=== PATIENT | male | born 1980 | race Caucasian/White ===

== ENCOUNTER 2016-09-17 21:58 | Emergency (ER) | payer OTHER ==
--- NOTE | 2016-09-17 22:24 | ER Document Report ---
ED Medical Screen (RME) - General Chief Complaint: Fall Stated Complaint: FALL/NECK PAIN Time seen by provider: 22:20 Mode of Arrival: Ambulatory Information source: Patient Notes: 36-year-old male presents to ED for fall and neck pain around 9:30. States he fell a couple years ago and broke his neck and his head palms with his neck ever since. States he has a little bit of a headache does not think he hit his head. States he will bee walking in [employer] and his legs will give out on him. Pulse 110 in rme I have greeted and performed a rapid initial assessment of this patient. A comprehensive ED assessment and evaluation of the patient, analysis of test results and completion of medical decision making process will be conducted by an additional ED providers. TRAVEL OUTSIDE OF THE [place] IN LAST 30 DAYS: No - Related Data Allergies/Adverse Reactions: No Known Allergies Allergy (Verified 08/23/16 09:19) Past Medical History - Past Medical History Cardiac Medical History: Denies: Hx Atrial Fibrillation, Hx Congestive Heart Failure, Hx Coronary Artery Disease Pulmonary Medical History: Reports: Hx Asthma, Hx Pneumonia Neurological Medical History: Denies: Hx Cerebrovascular Accident, Hx Migraine, Hx Seizures Endocrine Medical History: Denies: Hx Diabetes Mellitus Type 1, Hx Diabetes Mellitus Type 2, Hx Graves' Disease Renal/ Medical History: Denies: Hx Benign Prostatic Hyperplasia, Hx End Stage Renal Disease, Hx Hemodialysis, Hx Hydrocele Malignancy Medical History: Denies Hx Bone Cancer, Denies Hx Brain Cancer, Denies Hx Colorectal Cancer, Denies Hx Liver Cancer GI Medical History: Denies: Hx Cirrhosis, Hx Crohn's Disease, Hx Diverticulitis , Hx Gastritis - Immunizations Hx Diphtheria, Pertussis, Tetanus Vaccination: Yes Physical Exam - Vital signs Vitals: Temp Pulse Resp BP Pulse Ox 98.1 F 131 H 19 136/77 H 100 09/17/16 22:04 09/17/16 22:04 09/17/16 22:04 09/17/16 22:04 09/17/16 22:04 Course - Vital Signs Vital signs: Temp Pulse Resp BP Pulse Ox 98.1 F 131 H 19 136/77 H 100 09/17/16 22:04 09/17/16 22:04 09/17/16 22:04 09/17/16 22:04 09/17/16 22:04
--- NOTE | 2016-09-18 02:18 | ER Document Report ---
ED General - General Chief Complaint: Head Injury Stated Complaint: FALL/NECK PAIN Mode of Arrival: Ambulatory Notes: Patient is a 36 year old male presents with complaint of neck pain. Patient says he is walking [place] he slipped and fell. Says he has pain in his neck. He says he may of his head but he denies a headache. He has no vomiting. He has no other complaints. He said initially had some numbness into his leg. He says he gets this numbness frequently being that he does have a previous history of neck fracture. The neck fracture did not require surgery. He never had any numbness or weakness into his arms. He denies any numbness into his leg currently. No other complaints at this time. TRAVEL OUTSIDE OF THE [place] IN LAST 30 DAYS: No - Related Data Allergies/Adverse Reactions: No Known Allergies Allergy (Verified 08/23/16 09:19) Past Medical History - General Information source: Patient - Social History Smoking Status: Current Every Day Smoker Frequency of alcohol use: Rare Drug Abuse: None Family History: Reviewed & Not Pertinent - Past Medical History Cardiac Medical History: Denies: Hx Atrial Fibrillation, Hx Congestive Heart Failure, Hx Coronary Artery Disease Pulmonary Medical History: Reports: Hx Asthma, Hx Pneumonia Neurological Medical History: Denies: Hx Cerebrovascular Accident, Hx Migraine, Hx Seizures Endocrine Medical History: Denies: Hx Diabetes Mellitus Type 1, Hx Diabetes Mellitus Type 2, Hx Graves' Disease Renal/ Medical History: Denies: Hx Benign Prostatic Hyperplasia, Hx End Stage Renal Disease, Hx Hemodialysis, Hx Hydrocele, Hx Peritoneal Dialysis Malignancy Medical History: Denies Hx Bone Cancer, Denies Hx Brain Cancer, Denies Hx Colorectal Cancer, Denies Hx Liver Cancer GI Medical History: Denies: Hx Cirrhosis, Hx Crohn's Disease, Hx Diverticulitis , Hx Gastritis - Immunizations Hx Diphtheria, Pertussis, Tetanus Vaccination: Yes Review of Systems - Review of Systems Notes: My Normal Review Basic REVIEW OF SYSTEMS: CONSTITUTIONAL : Denies fever, chills, or sweats. Denies recent illness. EENT: Neck pain CARDIOVASCULAR: Denies chest pain. GASTROINTESTINAL: Denies abdominal pain. Denies nausea, vomiting, or diarrhea. Denies constipation. Last BM: MUSCULOSKELETAL: Denies neck or back pain or joint pain or swelling. SKIN: Denies rash or skin lesions. NEUROLOGICAL: Denies altered mental status or loss of consciousness. Denies headache. Denies weakness or paralysis or loss of use of either side. Denies problems with gait or speech. Denies sensory or motor loss. ALL OTHER SYSTEMS REVIEWED AND NEGATIVE. Physical Exam - Vital signs Vitals: Temp Pulse Resp BP Pulse Ox 98.1 F 131 H 19 136/77 H 100 09/17/16 22:04 09/17/16 22:04 09/17/16 22:04 09/17/16 22:04 09/17/16 22:04 - Notes Notes: General Appearance: Well nourished, alert, cooperative, no acute distress, mild to moderate obvious discomfort. Well-appearing Vitals: reviewed, See vital signs table. Head: no swelling or tenderness to the head Eyes: PERRL, EOMI, Conjuctiva clear Mouth: No decreasd moisture Throat: No tonsillar inflammation, No airway obstruction, No lymphadenopathy Neck: Supple, no neck tenderness, No thyromegaly Lungs: No wheezing, No rales, No rhonci, No accessory muscle use, good air exchange bilaterally. Heart: Normal rate, Regular rythm, No murmur, no rub Abdomen: Normal BS, soft, No rigidity, No abdominal tenderness, No guarding, no rebound, no abdominal masses, no organomegaly Extremities: strength 5/5 in all extremities, good pulses in all extremities, no swelling or tenderness in the extremities, no edema. Skin: warm, dry, appropriate color, no rash Neuro: speech clear, oriented x 3, normal affect, responds appropriately to questions. Cranial nerves II through XII are intact. Patient is able move all extremities without difficulty. Good strength in both upper extremities. Course - Vital Signs Vital signs: Temp Pulse Resp BP Pulse Ox 98.5 F 110 H 16 126/73 H 92 09/18/16 04:24 09/18/16 04:24 09/18/16 04:24 09/18/16 04:24 09/18/16 04:24 - Transfer of Care Notes: 09/18/16 06:59 I did perform a CT scan of the patient's neck pain is negative. He looks well. He was tachycardic when he first arrived still a little bit tachycardic rate left. I think this is most related pain. He has abstained no pain to his abdomen or chest. I do not suspect any internal bleeding based on the mechanism of fall and based on exam. I feel he is safe to be discharged home. I encourage him to return to ER immediately if he has worsening pain, severe headache, or feels unwell. Discharge - Discharge Clinical Impression: Cervical strain Qualifiers: Encounter type: initial encounter Qualified Code(s): S16.1XXA - Strain of muscle, fascia and tendon at neck level, initial encounter Condition: Good Disposition: HOME, SELF-CARE Additional Instructions: Please return to ER if you have severe headache, vomiting, worsening pain, or feel unwell. Please return to ER if you have any numbness or weakness going into the arms or hands. Forms: Return to Work
[2016-09-18 04:33] VITALS: BP 126/73
== END 2016-09-18 04:33 | disposition home or self-care (01) ==
LOC: ER 21:58
DX: S16.1XXA Strain of muscle, fascia and tendon at neck level, initial encounter (principal); M54.2 Cervicalgia; W19.XXXA Unspecified fall, initial encounter; F17.210 Nicotine dependence, cigarettes, uncomplicated
CPT/HCPCS: 99284; 72050; 72125; L0120; L0172

== ENCOUNTER 2016-10-14 19:16 | Emergency (ER) | payer OTHER ==
[2016-10-14] MEDS ORDERED: ASPIRIN 81 MG TABLET, CHEWABLE PO ONE (19:22)
[2016-10-14 20:24] LABS: ABSOLUTE BASOPHILS # (AUTO) 0.1 10^3/uL (0.0-0.2); ABSOLUTE EOSINOPHILS # (AUTO) 0.4 10^3/uL (0.0-0.6); ABSOLUTE LYMPHOCYTES (AUTO) 3.2 10^3/uL (0.5-4.7); ABSOLUTE MONOCYTES (AUTO) 0.5 10^3/uL (0.1-1.4); BASOPHILS % (AUTO) 1.1 % (0-2); EOSINOPHILS % (AUTO) 5.4 % (0-6); HEMATOCRIT 44.9 % (37.9-51.0); HEMOGLOBIN 15.4 g/dL (13.5-17.0); HGB HCT DIFFERENCE 1.3; LYMPHOCYTES % (AUTO) 45.4 % (13-45); MEAN CORPUSCULAR HEMOGLOBIN 33.2 pg (27.0-33.4); MEAN CORPUSCULAR HGB CONC 34.2 g/dL (32.0-36.0); MEAN CORPUSCULAR VOLUME 97 fl (80-97); MONOCYTES % (AUTO) 6.5 % (3-13); RED BLOOD COUNT 4.63 10^6/uL (4.35-5.55); RED CELL DISTRIBUTION WIDTH 14.4 % (11.5-14.0); SEGMENTED NEUTROPHILS % (AUTO) 41.6 % (42-78); WHITE BLOOD COUNT 7.2 10^3/uL (4.0-10.5)
[2016-10-14 20:36] LABS: ALANINE AMINOTRANSFERASE 25 U/L (21-72); ALBUMIN 3.7 g/dL (3.5-5.0); ALKALINE PHOSPHATASE 80 U/L (38-126); ANION GAP 8 (5-19); ASPARTATE AMINO TRANSFERASE 21 U/L (17-59); BILIRUBIN,TOTAL 0.3 mg/dL (0.2-1.3); BLOOD UREA NITROGEN 7 mg/dL (7-20); CALCIUM 9.2 mg/dL (8.4-10.2); CARBON DIOXIDE 29 mmol/L (22-30); CHLORIDE 110 mmol/L (98-107); CREATINE KINASE 67 U/L (55-170); GLUCOSE 89 mg/dL (75-110); POTASSIUM 4.5 mmol/L (3.6-5.0); TOTAL PROTEIN 5.9 g/dL (6.3-8.2)
[2016-10-14 20:47] LABS: CREATINE KINASE MB 0.46 ng/mL (<4.55)
[2016-10-14 20:50] LABS: TROPONIN I < 0.012 ng/mL
[2016-10-14] MEDS ORDERED: LORAZEPAM INJ 2 MG/1 ML VIAL IV ONE (22:06)
--- NOTE | 2016-10-14 22:06 | ER Document Report ---
ED Cardiac - General Chief Complaint: Chest Pain Stated Complaint: POSSIBLE ANXIETY Mode of Arrival: Medic Information source: Patient Notes: This is a 36-year-old male who states that he has daily chest pain. He states that today at 1600 his pain became worse like "someone shot him in the chest". He called 911 at this time. He was at rest during chest pain onset. He denies radiation of the pain. He denies shortness of breath. He denies diaphoresis, nausea, vomiting. He states that he is under daily stress and that stress causes his chest pain. Currently has no chest pain. TRAVEL OUTSIDE OF THE [place] IN LAST 30 DAYS: No - Related Data Allergies/Adverse Reactions: No Known Allergies Allergy (Verified 08/23/16 09:19) Past Medical History - Social History Smoking Status: Current Every Day Smoker Frequency of alcohol use: Occasional Family History: CAD - Past Medical History Cardiac Medical History: Denies: Hx Atrial Fibrillation, Hx Congestive Heart Failure, Hx Coronary Artery Disease Pulmonary Medical History: Reports: Hx Asthma, Hx Pneumonia Neurological Medical History: Denies: Hx Cerebrovascular Accident, Hx Migraine, Hx Seizures Endocrine Medical History: Denies: Hx Diabetes Mellitus Type 1, Hx Diabetes Mellitus Type 2, Hx Graves' Disease Renal/ Medical History: Denies: Hx Benign Prostatic Hyperplasia, Hx End Stage Renal Disease, Hx Hemodialysis, Hx Hydrocele, Hx Peritoneal Dialysis Malignancy Medical History: Denies Hx Bone Cancer, Denies Hx Brain Cancer, Denies Hx Colorectal Cancer, Denies Hx Liver Cancer GI Medical History: Denies: Hx Cirrhosis, Hx Crohn's Disease, Hx Diverticulitis , Hx Gastritis - Immunizations Hx Diphtheria, Pertussis, Tetanus Vaccination: Yes Review of Systems - Review of Systems Notes: REVIEW OF SYSTEMS: Review of systems is limited secondary to patient anger and not cooperating fully with questions. CONSTITUTIONAL : Denies fever EENT: No reported complaints CARDIOVASCULAR: As per history of present illness RESPIRATORY: No shortness of breath GASTROINTESTINAL: Denies abdominal pain GENITOURINARY: No reported complaints MUSCULOSKELETAL: Denies complaints SKIN: Denies rash or skin lesions. PSYCHIATRIC: Patient states "I am here for stress I'm always stressed and that' s what causes my chest pain!!" Denies suicidal or homicidal ideation. ALL OTHER SYSTEMS REVIEWED AND NEGATIVE. Physical Exam - Vital signs Vitals: Pulse Ox 97 10/14/16 19:41 - Notes Notes: PHYSICAL EXAMINATION: GENERAL: Well-appearing, well-nourished and in no acute distress. HEAD: Atraumatic, normocephalic. EYES: Pupils equal round and reactive to light, extraocular movements intact, sclera anicteric, conjunctiva are normal. ENT: nares patent, oropharynx clear without exudates. Moist mucous membranes. NECK: Normal range of motion, supple without lymphadenopathy LUNGS: Breath sounds clear to auscultation bilaterally and equal. No wheezes rales or rhonchi. HEART: Regular rate and rhythm without murmurs. No chest wall TTP ABDOMEN: Soft, nontender, normoactive bowel sounds. No guarding, no rebound. No masses appreciated. EXTREMITIES: Normal range of motion, no pitting or edema. No cyanosis. NEUROLOGICAL: No gross focal motor or sensory deficits noted PSYCH: Patient appears angry but not combative. He appears annoyed at every question that he is asked. No audiovisual hallucinations, no SI/HI SKIN: Warm, Dry, normal turgor, no rashes or lesions noted. Course - Re-evaluation Re-evalutation: 10/14/16 22:04 Initial evaluation of the patient is difficult secondary to his angry affect. He is not very cooperative with questioning and is very angry, using curse words and when I asked to examine him, he says just do what you need to do! He refuses aspirin stating that he cannot take any pills because they make him high. 10/15/16 00:42 Patient reevaluated. He is sleeping comfortably in the room. He does awaken easily to voice and answers questions appropriately. He states that he feels fine right now. We discussed his high alcohol level and he admits to drinking prior to arrival. At this point he would like to go home and sleep in his own bed. He states that he will call his mom to come drive him. At this point I do not see any clinical evidence of cardiac ischemia or acute coronary syndrome. His EKG shows no ischemia and his troponin is negative 2. He is encouraged to limit his alcohol use as well as to stop smoking. Strict return precautions discussed. - Vital Signs Vital signs: Temp Pulse Resp BP Pulse Ox 98.6 F 58 L 16 109/60 96 10/15/16 00:44 10/15/16 00:44 10/15/16 00:44 10/15/16 00:44 10/15/16 00:44 - Laboratory Result Diagrams: 10/14/16 20:09 10/14/16 20:09 Laboratory results interpreted by me: 10/14/16 10/14/16 20:09 20:09 RDW 14.4 H Seg Neutrophils % 41.6 L Lymphocytes % 45.4 H Sodium 147.0 H Chloride 110 H Total Protein 5.9 L - Diagnostic Test Radiology reviewed: Reports reviewed - Chest x-ray negative - EKG Interpretation by Me Additional EKG results interpreted by me: 10/14/16 23:26 EKG at 1921 demonstrates normal sinus rhythm with a rate of 98. There is a normal axis. There are no ST elevation or depressions. Discharge - Discharge Clinical Impression: Anxiety Alcohol intoxication Qualifiers: Complication of substance-induced condition: uncomplicated Qualified Code(s): F10.120 - Alcohol abuse with intoxication, uncomplicated Chest pain Qualifiers: Chest pain type: unspecified Qualified Code(s): R07.9 - Chest pain, unspecified Condition: Stable Disposition: HOME, SELF-CARE Additional Instructions: ACUTE ALCOHOL INTOXICATION and ALCOHOL ABUSE: Your evaluation revealed very high levels of alcohol. You can from drinking a large amount of alcohol rapidly! Further, there's the risk of falls , traffic accidents, and fights. A high portion (about 50 percent) of the serious injuries seen in hospital emergency rooms are caused by alcohol. Alcohol overdosage is usually due to an underlying emotional or psychiatric problem. You may benefit from counselling. If "binge" drinking is an ongoing problem for you, or if you drink ANY AMOUNT of alcohol EVERY day, you most likely have a tendency to alcoholism. You should avoid alcohol totally. We can refer you for treatment. Persons with alcohol problems are often also prone to other addictions -- you should discuss any use of medications or drugs with the doctor. You should be watched at home for the next several hours by someone who has not been drinking. Get extra fluids for the next 24 hours. Call the doctor if there is repeated vomiting, increasing headache, decreasing level of alertness, or any other worsening. Chest Pain of Unclear Cause The exact cause of your chest pain isn't clear. Fortunately, there is no evidence of a dangerous medical condition. Further testing may be required to find the source of the pain. Most often, we find that this pain is coming from the chest wall -- the muscles or rib joints in the chest. But chest pain can come from the lung and lung lining, the esophagus, the heart valves or heart lining, and even the stomach or gallbladder. Rest. Eat lightly until the pain is gone. We may prescribe medicine for pain and inflammation. You should call the physician immediately if the pain radiates to the shoulder, jaw or arms; if you start to run a fever or develop a cough; or if you develop shortness of breath, or other new or alarming symptoms. SMOKING: If you smoke, you should stop smoking. The tar and chemicals in cigarette smoke are harmful. Smoking has been shown to cause: emphysema chronic bronchitis lung cancer mouth and throat cancer stomach and pancreas cancer premature aging defects In addition, smoking increases ear and lung infections in children of smokers. FOLLOW-UP CARE: If you have been referred to a physician for follow-up care, call the physician s office for an appointment as you were instructed or within the next two days. If you experience worsening or a significant change in your symptoms, notify the physician immediately or return to the Emergency Department at any time for re-evaluation. Forms: Smoking Cessation Education
[2016-10-15] MEDS ORDERED: NORMAL SALINE 1000 ML 1,000 ML IV ONE ×2 (00:01→00:24)
[2016-10-15 00:17] LABS: URINE BARBITURATES SCREEN NEGATIVE; URINE METHADONE SCREEN NEGATIVE; URINE OPIATES LOW NEGATIVE; URINE PHENCYCLIDINE SCREEN NEGATIVE
[2016-10-15 02:29] VITALS: BP 92/56
--- NOTE | 2016-10-15 22:01 | EKG REPORT ---
SEVERITY:- BORDERLINE ECG - SINUS RHYTHM PROBABLE LEFT ATRIAL ABNORMALITY BORDERLINE PROLONGED QT INTERVAL : Confirmed by: Bozena King MD 15-Oct-2016 22:00:25
== END 2016-10-15 02:29 | disposition home or self-care (01) ==
LOC: ER 19:16
DX: F41.9 Anxiety disorder, unspecified (principal); F10.120 Alcohol abuse with intoxication, uncomplicated; R07.9 Chest pain, unspecified; F17.200 Nicotine dependence, unspecified, uncomplicated
CPT/HCPCS: 93005; 99284; 96374; 36415; 82553; 80307 ×2; 82550; 85025; 80053; 84484; 71010; 93010; J2060

== ENCOUNTER 2016-11-06 13:09 | Emergency (ER) | payer OTHER ==
--- NOTE | 2016-11-06 15:27 | ER Document Report ---
ED Extremity Problem, Lower - General Mode of Arrival: Ambulatory Information source: Patient TRAVEL OUTSIDE OF THE [place] IN LAST 30 DAYS: No - HPI Patient complains to provider of: Pain - left lateral foot Location: Foot - left lateral foot Occurred: Other - 1 week ago Context: Other - see above Associated symptoms: Other - see above - General Chief Complaint: Foot Pain Stated Complaint: LEFT FOOT SWOLLEN Notes: 36 year old male presents to the ED complaining of left lateral foot pain that started 1 week ago. Patient reports that it feels like his foot is "tearing apart." Patient denies injury to his foot. 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 Patient denies history of diabetes. (JOESPH CEJA) - Related Data Allergies/Adverse Reactions: No Known Allergies Allergy (Verified 11/06/16 13:59) Past Medical History - General Information source: Patient - Social History Smoking Status: Current Every Day Smoker Chew tobacco use (# tins/day): No Frequency of alcohol use: None Drug Abuse: None Family History: CAD Patient has suicidal ideation: No Patient has homicidal ideation: No - Past Medical History Cardiac Medical History: Denies: Hx Atrial Fibrillation, Hx Congestive Heart Failure, Hx Coronary Artery Disease Pulmonary Medical History: Reports: Hx Asthma, Hx Pneumonia - Immunizations Hx Diphtheria, Pertussis, Tetanus Vaccination: Yes Review of Systems - Review of Systems Constitutional: No symptoms reported EENT: No symptoms reported Cardiovascular: No symptoms reported Respiratory: No symptoms reported Gastrointestinal: No symptoms reported Genitourinary: No symptoms reported Male Genitourinary: No symptoms reported Musculoskeletal: See HPI, Other - left lateral foot pain Skin: No symptoms reported Hematologic/Lymphatic: No symptoms reported Neurological/Psychological: No symptoms reported -: Yes All other systems reviewed and negative Physical Exam - Vital signs Interpretation: Normal - General General appearance: Alert In distress: None - HEENT Head: Normocephalic, Atraumatic Eyes: Normal Extraocular movements intact: Yes Pupils: PERRL - Respiratory Respiratory status: No respiratory distress Breath sounds: Normal - Cardiovascular Rhythm: Regular Heart sounds: Normal auscultation - Abdominal Inspection: Normal Distension: No distension Tenderness: Nontender - Back Back: Normal - Extremities General upper extremity: Normal inspection, Normal ROM General lower extremity: Normal ROM. No: Normal inspection - see ankle exam below Ankle: Nontender - upon palpation, Other - Mild swelling to the lateral aspect the left foot. No deformity with mild resolving ecchymosis.. No: Limited ROM - Neurological Neuro grossly intact: Yes Cognition: Normal Orientation: AAOx4 Reena Coma Scale Eye Opening: Spontaneous Reena Coma Scale Verbal: Oriented [place] Coma Scale Motor: Obeys Commands Reena Coma Scale Total: 15 Speech: Normal - Psychological Associated symptoms: Normal affect, Normal mood - Skin Skin Temperature: Warm Skin Moisture: Dry Skin Color: Normal Discharge - Discharge Clinical Impression: Sprain of foot Condition: Stable Disposition: HOME, SELF-CARE Instructions: Ice Packs ([facility]), Sprain ([facility]) Additional Instructions: SPRAIN: Your injury is a sprain. A sprain results from stretching or tearing of the ligaments, usually from a twisting injury. The ligaments will require time and protection in order to heal properly. Many sprains are quite disabling and should be taken seriously. The usual initial treatment of sprains is cold packs, elevation, and rest of the injured area. Your physician has assessed the seriousness of your ligament injury, and has outlined a treatment plan. Understand that this treatment may change, depending on how you progress. If a re-examination was recommended, it is important that you follow up as instructed. Call the doctor any time if there is severe pain, numbness, or loss of function in the injured area. BRUNO WRAP: A compression dressing (bruno wrap) has been placed. This helps hold the area still. It limits swelling and internal bleeding. The wrap should be comfortably snug -- not tight. You should feel a sense of pressure, but not severe pain under the wrap. Unless the physician tells you otherwise, you can adjust the wrap for comfort. If the wrap causes symptoms suggesting it's too tight -- uncomfortable pressure, swelling or discoloration beyond the wrap, numbness, or severe pain - - you must loosen the wrap. If these symptoms don't resolve promptly, return for re-evaluation. SPLINT PRECAUTIONS: A splint has been placed. This will protect the area while healing begins. Your problem does NOT normally require a cast. It MUST, however, be held still! Keep the splint on ALL THE TIME until instructed to remove it by the doctor. As you begin to use the area, be careful. You shouldn't do anything which causes discomfort -- you may disturb the injury even with the splint in place. After the initial period of rest and elevation, if splint does not prevent pain when you move, come back. You may require placement of a different splint , or a cast. If there is unexpected severe pain, or numbness, discoloration, or swelling beyond the splint, you should return at once. If you feel that the splint has broken or become loose, come back. ICE & ELEVATION: Apply ice packs frequently against the painful area. Many different schedules are recommended, such as "20 minutes on, 20 minutes off" or "one hour ice, two hours rest." If you need to work, you may need to go longer between ice treatments. You should plan to have the area ice packed AT LEAST one- fourth of the time. The ice should be applied over the wrap, tape, or splint, or over a layer of cloth -- not directly against the skin. Some ice bags have a built-in cloth and can be put directly on the skin. Your injured part should be elevated as much as possible over the next 48 hours. Try to keep the injury above the level of the heart. Avoid use of the injured area. Elevation and rest will decrease the swelling. USE OF [id number] IBUPROFEN: Ibuprofen (Advil, Nuprin, Medipren, Motrin IB) is a medication for fever and pain control. In addition, it has anti- inflammatory effects which may be beneficial, especially in the treatment of injuries. It's best to take ibuprofen with food. Persons with ulcer disease or allergy to aspirin should notify their physician of this before taking ibuprofen. Ibuprofen can be given every four to six hours, for a total of four doses daily. Age Pain or fever dose Antiinflammatory dose 6-8 yr 200 mg (1 tab) 200 mg (1 tab) 9-11 yr 200 mg (1 tab) 200-400 mg (1-2 tab) 11-14 yr 200-400 mg (1-2 tab) 400 mg (2 tab) 15-adult 400 mg (2 tab) 600 mg (3 tab) FOLLOW-UP CARE: If you have been referred to a physician for follow-up care, call the physician s office for an appointment as you were instructed or within the next two days. If you experience worsening or a significant change in your symptoms, notify the physician immediately or return to the Emergency Department at any time for re-evaluation. Prescriptions: Naproxen [Naprosyn 375 Mg Tablet] 375 mg PO DAILY #12 tablet Scribe Documentation - Scribe Written by Lillian:: Lillian Horton, 11/06/2016 [id number] acting as scribe for :: Riley
[2016-11-06 17:03] VITALS: BP 118/69
== END 2016-11-06 17:01 | disposition home or self-care (01) ==
LOC: ER 13:09
DX: S93.609A Unspecified sprain of unspecified foot, initial encounter (principal); X58.XXXA Exposure to other specified factors, initial encounter; M79.672 Pain in left foot; M79.89 Other specified soft tissue disorders; F17.200 Nicotine dependence, unspecified, uncomplicated; J45.909 Unspecified asthma, uncomplicated
CPT/HCPCS: 99283

== ENCOUNTER → 2016-12-31 | Outpatient (CLI) | payer OTHER ==
[2016-12-31 10:42] LABS: ABSOLUTE BASOPHILS # (AUTO) 0.1 10^3/uL (0.0-0.2); ABSOLUTE EOSINOPHILS # (AUTO) 0.6 10^3/uL (0.0-0.6); ABSOLUTE LYMPHOCYTES (AUTO) 1.7 10^3/uL (0.5-4.7); ABSOLUTE MONOCYTES (AUTO) 0.9 10^3/uL (0.1-1.4); ABSOLUTE NEUT (AUTO) 6.2 10^3/uL (1.7-8.2); BASOPHILS % (AUTO) 0.8 % (0-2); EOSINOPHILS % (AUTO) 6.6 % (0-6); HEMATOCRIT 44.8 % (37.9-51.0); HEMOGLOBIN 15.4 g/dL (13.5-17.0); HGB HCT DIFFERENCE 1.4; LYMPHOCYTES % (AUTO) 17.7 % (13-45); MEAN CORPUSCULAR HGB CONC 34.3 g/dL (32.0-36.0); MEAN CORPUSCULAR VOLUME 96 fl (80-97); MONOCYTES % (AUTO) 9.4 % (3-13); RED BLOOD COUNT 4.67 10^6/uL (4.35-5.55); RED CELL DISTRIBUTION WIDTH 13.8 % (11.5-14.0); SEGMENTED NEUTROPHILS % (AUTO) 65.5 % (42-78); WHITE BLOOD COUNT 9.5 10^3/uL (4.0-10.5)
== END ==
LOC: RAD 09:38
DX: M54.2 Cervicalgia (principal); R20.9 Unspecified disturbances of skin sensation
CPT/HCPCS: 36415; 72141; 82607; 85025

== ENCOUNTER 2017-05-27 00:14 | Emergency (ER) | payer OTHER ==
--- NOTE | 2017-05-27 01:52 | ER Document Report ---
HPI - HPI Patient complains to provider of: right knee pain Onset: Just prior to arrival Onset/Duration: Sudden Quality of pain: Throbbing Pain Level: 4 Context: 36-year-old male was trying to jump a electrical fence got tangled in the wires and was hanging by the 12 V since being shocked in his left leg and twisting his right knee. He got off the fence and walked went home and took a nap when he woke up it was swollen with increased pain to the right knee. Tetanus not current. No chest pain or sob at the time, no palpiations. No skin roy, only abrasions from the wire - REPRODUCTIVE Reproductive: DENIES: : - DERM Skin Color: Normal Past Medical History - General Information source: Patient - Social History Smoking Status: Current Every Day Smoker Frequency of alcohol use: Heavy Drug Abuse: None Lives with: Spouse/Significant other Family History: CAD Patient has suicidal ideation: No Patient has homicidal ideation: No Pulmonary Medical History: Reports: Hx Asthma, Hx Pneumonia Surgical Hx: Negative - Immunizations Hx Diphtheria, Pertussis, Tetanus Vaccination: Yes Vertical Provider Document - CONSTITUTIONAL Agree With Documented VS: Yes Exam Limitations: No Limitations General Appearance: No Apparent Distress - INFECTION CONTROL TRAVEL OUTSIDE OF THE [place] IN LAST 30 DAYS: No - HEENT HEENT: Normocephalic - NECK Neck: Supple - RESPIRATORY Respiratory: Breath Sounds Normal, No Respiratory Distress O2 Sat by Pulse Oximetry: 97 - CARDIOVASCULAR Cardiovascular: Regular Rate, Regular Rhythm - MUSCULOSKELETAL/EXTREMETIES Musculoskeletal/Extremeties: Tender - effusion but not red or hot right knee, increased pain with flexion - NEURO Level of Consciousness: Awake, Alert - DERM Notes: abrasions anterior bilateral lower legs, some peripheral lower leg edema that he has had for a while , he states it is better than it has been, 2+ DP's Course - Vital Signs Vital signs: Temp Pulse Resp BP Pulse Ox 99.6 F 100 16 123/79 97 05/27/17 00:49 05/27/17 00:49 05/27/17 00:49 05/27/17 00:49 05/27/17 00:49 Procedures - Immobilization Right Knee Time completed: 03:15 Pre-Proc Neuro Vasc Exam: Normal Immobilizer type: Knee immobilizer Performed by: SUZI Post-Proc Neuro Vasc Exam: Normal Alignment checked and good: Yes Discharge - Discharge Clinical Impression: abrasions Right knee sprain Qualifiers: Encounter type: initial encounter Involved ligament of knee: unspecified ligament Qualified Code(s): S83.91XA - Sprain of unspecified site of right knee , initial encounter Knee effusion Qualifiers: Laterality: right Qualified Code(s): M25.461 - Effusion, right knee Electric shock Qualifiers: Encounter type: initial encounter Qualified Code(s): T75.4XXA - Electrocution, initial encounter Condition: Good Disposition: HOME, SELF-CARE Instructions: Anti-Inflammatory Medication ([facility]), Use of Crutches ([facility]), Ice & Elevation ([facility]), Suspected Internal Knee Injury ([facility]), Knee Immobilizing Splint ([facility]), Sprained Knee ([facility]) Additional Instructions: knee immobilizer splint crutches call and see the Prescriptions: Ibuprofen [Motrin 800 mg Tablet] 800 mg PO Q8HP PRN #30 tablet PRN Reason: Referrals: ANA WILHELM DO [ACTIVE STAFF] - Follow up tomorrow (call for appointment this week)
[2017-05-27] MEDS ORDERED: IBUPROFEN 800 MG TABLET PO ONE (02:11)
[2017-05-27] MEDS ORDERED: DIPH/PERTUSS(ACELL)/TETANUS VAC/PF 0.5 ML SYR (>=10YO) IM ONE (02:14)
--- NOTE | 2017-05-27 02:59 | RADIOLOGY REPORT (SQ) ---
EXAM DESCRIPTION: KNEE RIGHT 4 VIEWS CLINICAL HISTORY: 36 years, Male, injury COMPARISON: None. NUMBER OF VIEWS: 4 TECHNIQUE: Low dose radiographic technique. LIMITATIONS: None. FINDINGS: Moderate size suprapatellar joint effusion without layering fat. No fractures or dislocations. Medial and lateral joint compartments appear well preserved. No osteochondritis dissecans or evidence of calcified loose joint body. The patella appears intact. No lytic or blastic bone lesions. IMPRESSION: Moderate-sized right knee joint effusion without evidence of fracture, dislocation or osteochondritis dissecans. 2011 [employer]- All Rights Reserved
[2017-05-27 03:22] VITALS: BP 128/66
== END 2017-05-27 03:18 | disposition home or self-care (01) ==
LOC: ER 00:14
DX: S83.91XA Sprain of unspecified site of right knee, initial encounter (principal); M25.561 Pain in right knee; M25.461 Effusion, right knee; X50.1XXA Overexertion from prolonged static or awkward postures, initial encounter; Y93.39 Activity, other involving climbing, rappelling and jumping off; Y99.0 Civilian activity done for income or pay; T75.4XXA Electrocution, initial encounter; W86.8XXA Exposure to other electric current, initial encounter; S80.812A Abrasion, left lower leg, initial encounter; W23.0XXA Caught, crushed, jammed, or pinched between moving objects, initial encounter; F17.200 Nicotine dependence, unspecified, uncomplicated; J45.909 Unspecified asthma, uncomplicated
CPT/HCPCS: 99283; 90471; 73564; 90715; L1830

== ENCOUNTER → 2019-10-23 | Outpatient (CLI) | payer OTHER ==
[2019-10-23 11:12] LABS: ABSOLUTE BASOPHILS # (AUTO) 0.1 10^3/uL (0.0-0.2); ABSOLUTE EOSINOPHILS # (AUTO) 0.3 10^3/uL (0.0-0.6); ABSOLUTE LYMPHOCYTES (AUTO) 2.5 10^3/uL (0.5-4.7); ABSOLUTE MONOCYTES (AUTO) 0.9 10^3/uL (0.1-1.4); ABSOLUTE NEUT (AUTO) 8.8 10^3/uL (1.7-8.2); BASOPHILS % (AUTO) 1.2 % (0-2); EOSINOPHILS % (AUTO) 2.7 % (0-6); HEMATOCRIT 48.5 % (37.9-51.0); HEMOGLOBIN 16.6 g/dL (13.5-17.0); LYMPHOCYTES % (AUTO) 19.3 % (13-45); MEAN CORPUSCULAR HEMOGLOBIN 31.9 pg (27.0-33.4); MEAN CORPUSCULAR HGB CONC 34.2 g/dL (32.0-36.0); MEAN CORPUSCULAR VOLUME 93 fl (80-97); MONOCYTES % (AUTO) 7.1 % (3-13); PLATELET COUNT 279 10^3/uL (150-450); RED CELL DISTRIBUTION WIDTH 13.4 % (11.5-14.0); SEGMENTED NEUTROPHILS % (AUTO) 69.7 % (42-78); TOTAL CELLS COUNTED % (AUTO) 100 %; WHITE BLOOD COUNT 12.7 10^3/uL (4.0-10.5)
--- NOTE | 2019-10-23 12:03 | RADIOLOGY REPORT (SQ) ---
EXAM DESCRIPTION: C SP 4 OR 5 VIEWS COMPLETED DATE/TIME: 10/23/2019 11:53 am REASON FOR STUDY: RADICULOPATHY, CERVICAL REGION Z00.00 ENCNTR FOR GENERAL ADULT MEDICAL EXAM W/O A BNORMAL FI M54.12 RADICULOPATHY, CERVICAL REGION M62.81 MUSCLE WEAKNESS (GENERALIZED) COMPARISON: 09/17/2016. NUMBER OF VIEWS: Five views. TECHNIQUE: AP, lateral, obliques and odontoid radiographic images acquired of the cervical spine. LIMITATIONS: None. FINDINGS: MINERALIZATION: Normal. ALIGNMENT: Anatomic. VERTEBRAE: Vertebral bodies of normal height. DISCS: Osteophytes at C5-C6-C6-C7. Disc height maintained. FORAMINA: No osteophytes or foraminal narrowing. LATERAL AND POSTERIOR ELEMENTS: Facets, lateral masses and spinous processes without significant find ings. HARDWARE: None in the spine. SOFT TISSUES: No masses or calcifications. Lung apices clear. OTHER: No other significant finding. 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 NO ACUTE FINDINGS. TECHNICAL DOCUMENTATION: JOB ID: [id number] 2010 [employer]- All Rights Reserved Reading location - IP/workstation name: [email or web address]
--- NOTE | 2019-10-23 12:04 | RADIOLOGY REPORT (SQ) ---
EXAM DESCRIPTION: T SPINE AP/LAT COMPLETED DATE/TIME: 10/23/2019 11:53 am REASON FOR STUDY: MUSCLE WEAKNESS (GENERALIZED) Z00.00 ENCNTR FOR GENERAL ADULT MEDICAL EXAM W/O AB NORMAL FI M54.12 RADICULOPATHY, CERVICAL REGION M62.81 MUSCLE WEAKNESS (GENERALIZED) COMPARISON: None. NUMBER OF VIEWS: Two views. TECHNIQUE: AP and lateral radiographic images acquired of the thoracic spine. LIMITATIONS: None. FINDINGS: MINERALIZATION: Normal. ALIGNMENT: Normal. No scoliosis. VERTEBRAE: No fracture or bone lesion. Maintained height, normal segmentation. DISCS: No significant loss of height or significant narrowing. No large osteophytes. HARDWARE: None in the spine. MEDIASTINUM AND SOFT TISSUES: Normal heart size and aortic contour. No soft tissue abnormality. VISUALIZED LUNG ARREAGA: Clear. OTHER: No other significant finding. IMPRESSION: NO SIGNIFICANT RADIOGRAPHIC FINDING IN THE THORACIC SPINE. TECHNICAL DOCUMENTATION: JOB ID: [id number] 2010 [email or web address]- All Rights Reserved Reading location - IP/workstation name: [email or web address]
--- NOTE | 2019-10-23 12:04 | RADIOLOGY REPORT (SQ) ---
EXAM DESCRIPTION: LUMBAR SPINE W/FLEX/EXT COMPLETED DATE/TIME: 10/23/2019 11:53 am REASON FOR STUDY: MUSCLE WEAKNESS (GENERALIZED) Z00.00 ENCNTR FOR GENERAL ADULT MEDICAL EXAM W/O AB NORMAL FI M54.12 RADICULOPATHY, CERVICAL REGION M62.81 MUSCLE WEAKNESS (GENERALIZED) COMPARISON: None. NUMBER OF VIEWS: Seven views. TECHNIQUE: AP, lateral, obliques, flexion, extension, and sacral radiographic images acquired. LIMITATIONS: None. FINDINGS: MINERALIZATION: Normal. SEGMENTATION: Normal. No transitional anatomy. ALIGNMENT: Normal. FLEXION/EXTENSION: No instability. VERTEBRAE: Maintained height. No fracture or worrisome bone lesion. DISCS: Preserved height. No significant osteophytes or end plate irregularity. POSTERIOR ELEMENTS: Pedicles and facets are intact. No pars defect or posterior arch defects. HARDWARE: None in the spine. PARASPINAL SOFT TISSUES: Normal. PELVIS: Intact as visualized. No fractures or worrisome bone lesions. SI joints intact. OTHER: No other significant finding. IMPRESSION: NO SIGNIFICANT FINDING ON 7 VIEW SPINE SERIES. NO INSTABILITY ON FLEXION/EXTENSION. TECHNICAL DOCUMENTATION: JOB ID: [id number] 2010 [employer]- All Rights Reserved Reading location - IP/workstation name: [email or web address]
[2019-10-23 12:33] LABS: ALKALINE PHOSPHATASE 92 U/L (38-126); ANION GAP 11 (5-19); ASPARTATE AMINO TRANSFERASE 23 U/L (17-59); BILIRUBIN,DIRECT 0.3 mg/dL (0.0-0.4); BILIRUBIN,TOTAL 0.4 mg/dL (0.2-1.3); BLOOD UREA NITROGEN 13 mg/dL (7-20); CALCIUM 10.3 mg/dL (8.4-10.2); CARBON DIOXIDE 29 mmol/L (22-30); CHLORIDE 102 mmol/L (98-107); GLUCOSE 96 mg/dL (75-110); POTASSIUM 4.3 mmol/L (3.6-5.0); TOTAL PROTEIN 8.1 g/dL (6.3-8.2)
== END ==
LOC: CCC 10:18
DX: Z00.00 Encounter for general adult medical examination without abnormal findings (principal); M50.123 Cervical disc disorder at C6-C7 level with radiculopathy; M62.81 Muscle weakness (generalized)
CPT/HCPCS: 36415; 72050; 72070; 72114; 80053; 85025

== ENCOUNTER → 2019-11-22 | Outpatient (CLI) | payer OTHER | LOC: RAD 16:00 | PROVIDERS: ATTEND Physician Assistant Surgical | DX: M25.511 Pain in right shoulder (principal) ==

== ENCOUNTER → 2020-02-18 | Outpatient (CLI) | payer SELFPAY ==
[2020-02-18 12:51] LABS: A TYPE INFLUENZA AG NEGATIVE (NEGATIVE); B INFLUENZA AG NEGATIVE (NEGATIVE)
[2020-02-18 13:24] VITALS: BP 135/94
--- NOTE | 2020-02-18 13:24 | ER RDC ASSESSMENT REPORT ---
Intake - In the Last 14 days Have you traveled outside [place]?: No Have you been in close contact with someone CONFIRMED: No Worked in Healthcare?: No - Symptoms Subjective Fever([place] feverish): No Chills: No Muscule Aches: No Runny Nose: Yes Sore Throat: Yes Cough (New or worsening chronic cough): No Shortness of breath: No Nausea or Vomiting: Yes Headache: Yes Abdominal Pain: Yes Diarrhea(3 or more loose stools in last 24 hours): Yes - Do you have any of the following Chronic lung disease: Asthma or emphysema or COPD: No Cystic Fibrosis: No Diabetes: No High Blood Pressure: No Cardiovascular Disease: No Chronic Kidney Disease: No Chronic Liver Disease: No Chronic blood disorder like Sickle Cell Disease: No Weak immune system due to disease or medication: No Neurologic condition that limits movement: No Developmental delay - Moderate to Severe: No Recent (within past 2 weeks) or current : No Morbid Obesity (>100 pounds over ideal weight): No - Objective Vital Signs: 6'1", 190 lb Temperature: 97.8 F Pulse Rate: 102 Respiratory Rate: 18 Blood Pressure: 135/94 O2 Sat by Pulse Oximetry: 98 Objective: Given above, testing performed: flu, strep, covid Disposition: Home; Selfcare General - General Chief Complaint: Diarrhea Time Seen by Provider: 02/18/20 10:30 Mode of Arrival: Ambulatory Information source: Patient - HPI Notes: 39-year-old male presents to [facility] clinic for COVID-19 testing. Patient states he was referred over by his employer, [employer] after presenting to work with GI symptoms. Patient is reporting onset of symptoms 02/12/20. He is reporting mild rhinorrhea, sore throat, headache, nausea, abdominal pain and diarrhea. No relieving factors no exacerbating factors. Patient is denying any fever, chills, myalgia, cough, or shortness of breath. - Related Data Allergies/Adverse Reactions: No Known Allergies Allergy (Verified 11/06/16 13:59) Past Medical History - General Information source: Patient - Social History Smoking Status: Current Every Day Smoker Cigarette use (# per day): Yes - 20 Smoking Education Provided: Yes Family History: CAD - Past Medical History Cardiac Medical History: Reports: None Denies: Hx Atrial Fibrillation, Hx Congestive Heart Failure, Hx Coronary Artery Disease Pulmonary Medical History: Reports: Hx Asthma, Hx Pneumonia EENT Medical History: Reports: None Neurological Medical History: Reports: None. Denies: Hx Cerebrovascular Accident, Hx Migraine, Hx Seizures Endocrine Medical History: Reports: None. Denies: Hx Diabetes Mellitus Type 1, Hx Diabetes Mellitus Type 2, Hx Graves' Disease Renal/ Medical History: Reports: None. Denies: Hx Benign Prostatic Hyperplasia, Hx End Stage Renal Disease, Hx Hemodialysis, Hx Hydrocele, Hx Peritoneal Dialysis Malignancy Medical History: Reports None, Denies Hx Bone Cancer, Denies Hx Brain Cancer, Denies Hx Colorectal Cancer, Denies Hx Liver Cancer GI Medical History: Reports: None. Denies: Hx Cirrhosis, Hx Crohn's Disease, Hx Diverticulitis, Hx Gastritis Musculoskeletal Medical History: Reports None Skin Medical History: Reports None Psychiatric Medical History: Reports: None Traumatic Medical History: Reports: None Infectious Medical History: Reports: None Surgical Hx: Negative Past Surgical History: Reports: None Physical Exam - General General appearance: Appears well In distress: None Notes: PHYSICAL EXAMINATION: GENERAL: Well-appearing and in no acute distress. HEAD: Atraumatic, normocephalic. EYES: sclera anicteric, conjunctiva are normal. ENT: nares patent. Moist mucous membranes. NECK: Normal range of motion, supple without lymphadenopathy LUNGS: CTAB and equal. No wheezes rales or rhonchi. HEART: Regular rate and rhythm without murmurs ABDOMEN: Soft, nontender, normal bowel sounds, no guarding. EXTREMITIES: Normal range of motion, no pitting edema. No cyanosis. NEUROLOGICAL: Cranial nerves grossly intact. Normal speech. PSYCH: Normal mood, normal affect. SKIN: Warm, Dry, normal turgor, no rashes or lesions noted Diagnostic Results Laboratory Results: 02/18/20 10:27 Throat Throat Culture - Pending Influenza A (Rapid) NEGATIVE (NEGATIVE) 02/18/20 10:43 Influenza B (Rapid) NEGATIVE (NEGATIVE) 02/18/20 10:43 Group A Strep Rapid NEGATIVE (NEGATIVE) 02/18/20 10:43 Patient Education/Counseling Counseling/Education: Patient presents with symptoms worrisome for possible Covid 19. Patient does not have emergency worrying symptoms such as difficulty breathing, shortness of breath, chest pain, pressure, confusion or cyanosis. Patient appears suitable for discharge as vital signs are stable and patient is nontoxic in appearance. Good return precautions have been discussed with patient, patient verbalized understanding and is agreeable with discharge plan of care at this time. Guidance for worsening S/SX: As a person under investigation for Covid 19, the [facility], division of public health advises you to adhere to the following guidance until your test results are reported to you. If your test result is positive, you will receive additional information from your provider and your local health department at that time. Remain at home until you are cleared by the health provider or public health authorities. Keep a log of visitors to your home, notify any visitors to your home of your isolation status. If you plan to move to a new address or leave the county, notify the local health department in your County. Call your doctor or seek care if you have an urgent medical need. Before seeking medical care, call ahead to get instructions from the provider before arriving at the medical office clinic or hospital. Notify them that you are being tested for the virus that causes Covid 19 so that arrangements can be made, as necessary, to prevent transmission to others in the healthcare setting. Next, notify the local health department in your county. If a medical emergency arises and you need to call 911, inform the first responders that you are being tested for the virus that causes Covid 19. Next, notify the local health department in your county. RDC Discharge - Discharge Clinical Impression: Encounter for screening laboratory testing for COVID-19 virus Diarrhea Qualifiers: Diarrhea type: unspecified type Qualified Code(s): R19.7 - Diarrhea, unspecified Condition: Good Disposition: Home; Selfcare
== END ==
LOC: RDC 10:17
PROVIDERS: ATTEND Registered Nurse
DX: Z20.828 Contact with and (suspected) exposure to other viral communicable diseases (principal); J02.9 Acute pharyngitis, unspecified; J34.89 Other specified disorders of nose and nasal sinuses; R11.0 Nausea; R51 Headache; R10.9 Unspecified abdominal pain; R19.7 Diarrhea, unspecified; F17.210 Nicotine dependence, cigarettes, uncomplicated
CPT/HCPCS: 87070; 87880; 87635; 87804; C9803

== ENCOUNTER 2020-04-06 19:32 | Observation (INO) | payer OTHER ==
--- NOTE | 2020-04-06 19:55 | ER Document Report ---
ED Medical Screen (RME) - General Chief Complaint: Headache Stated Complaint: SEVERE HEADACHE, DIZZINESS, DIORIENTED Time Seen by Provider: 04/06/20 19:51 Primary Care Provider: TATI WARD [Primary Care Provider] - Follow up as needed Mode of Arrival: Wheelchair Information source: Patient Notes: 39-year-old male presented to ED for sudden headache at 1730 while resting on his front porch. He states he was in his adventism headache on the left temporal area. He states is throbbing pressure. He states he has had dizziness and is been off balance since then his vision feels like it is moving his speech is garbled at times. He states he does have a recent history of diagnosed high blood pressure started on clonidine but his blood pressure right now is 145/100. He states he has not lost vision it just is moving. He is alert and oriented right now he is able to answer my questions. Colostomy intact with osteoarthritis. He does not have any facial droop. He does not have any palmar drift at this time. We will get blood work and CT and have him seen by the providers. I have greeted and performed a rapid initial assessment of this patient. A com prehensive ED assessment and evaluation of the patient, analysis of test results and completion of medical decision making process will be conducted by an additional ED providers. TRAVEL OUTSIDE OF THE [place] IN LAST 30 DAYS: No - Related Data Allergies/Adverse Reactions: No Known Allergies Allergy (Verified 04/06/20 19:38) Past Medical History - Past Medical History Cardiac Medical History: Denies: Hx Atrial Fibrillation, Hx Congestive Heart Failure, Hx Coronary Artery Disease Pulmonary Medical History: Reports: Hx Asthma, Hx Pneumonia Neurological Medical History: Denies: Hx Cerebrovascular Accident, Hx Migraine, Hx Seizures Endocrine Medical History: Denies: Hx Diabetes Mellitus Type 1, Hx Diabetes Mellitus Type 2, Hx Graves' Disease Renal/ Medical History: Denies: Hx Benign Prostatic Hyperplasia, Hx End Stage Renal Disease, Hx Hemodialysis, Hx Hydrocele, Hx Peritoneal Dialysis Malignancy Medical History: Denies Hx Bone Cancer, Denies Hx Brain Cancer, Denies Hx Colorectal Cancer, Denies Hx Liver Cancer GI Medical History: Denies: Hx Cirrhosis, Hx Crohn's Disease, Hx Diverticulitis, Hx Gastritis - Immunizations Hx Diphtheria, Pertussis, Tetanus Vaccination: Yes Physical Exam - Vital signs Vitals: Temp Pulse Resp BP Pulse Ox 97.7 F 103 H 18 145/100 H 98 04/06/20 19:35 04/06/20 19:35 04/06/20 19:35 04/06/20 19:35 04/06/20 19:35 Course - Vital Signs Vital signs: Temp Pulse Resp BP Pulse Ox 97.7 F 103 H 18 145/100 H 98 04/06/20 19:35 04/06/20 19:35 04/06/20 19:35 04/06/20 19:35 04/06/20 19:35 Doctor's Discharge - Discharge Referrals: LOCALMD,NO [Primary Care Provider] - Follow up as needed
[2020-04-06 20:23] LABS: ABSOLUTE BASOPHILS # (AUTO) 0.1 10^3/uL (0.0-0.2); ABSOLUTE EOSINOPHILS # (AUTO) 0.4 10^3/uL (0.0-0.6); ABSOLUTE LYMPHOCYTES (AUTO) 2.5 10^3/uL (0.5-4.7); ABSOLUTE MONOCYTES (AUTO) 0.8 10^3/uL (0.1-1.4); ABSOLUTE NEUT (AUTO) 7.4 10^3/uL (1.7-8.2); BASOPHILS % (AUTO) 0.9 % (0-2); EOSINOPHILS % (AUTO) 3.3 % (0-6); HEMATOCRIT 49.3 % (37.9-51.0); HEMOGLOBIN 16.9 g/dL (13.5-17.0); LYMPHOCYTES % (AUTO) 22.1 % (13-45); MEAN CORPUSCULAR HEMOGLOBIN 33.7 pg (27.0-33.4); MEAN CORPUSCULAR HGB CONC 34.3 g/dL (32.0-36.0); MEAN CORPUSCULAR VOLUME 98 fl (80-97); MONOCYTES % (AUTO) 7.3 % (3-13); PLATELET COUNT 218 10^3/uL (150-450); RED BLOOD COUNT 5.02 10^6/uL (4.35-5.55); RED CELL DISTRIBUTION WIDTH 16.2 % (11.5-14.0); SEGMENTED NEUTROPHILS % (AUTO) 66.4 % (42-78); TOTAL CELLS COUNTED % (AUTO) 100 %; WHITE BLOOD COUNT 11.2 10^3/uL (4.0-10.5)
[2020-04-06 20:25] LABS: PARTIAL THROMBOPLASTIN TIME 31.6 SEC (23.5-35.8)
[2020-04-06 20:28] LABS: INTERNATIONAL RATION (INR) 0.93; PROTHROMBIN TIME 12.6 SEC (11.4-15.4)
--- NOTE | 2020-04-06 20:28 | RADIOLOGY REPORT (SQ) ---
EXAM DESCRIPTION: X-RAY CHEST- One View CLINICAL HISTORY: Severe headache COMPARISON: None available TECHNIQUE: Single view of the chest. FINDINGS: There are no discrete air space infiltrates, pneumothoraces or pleural effusions. The pulmonary vascularity is normal. The cardiomediastinal silhouette is normal in size. No suspicious lytic or blastic osseous lesions are identified. IMPRESSION: There are no acute lung parenchymal findings.
--- NOTE | 2020-04-06 20:29 | RADIOLOGY REPORT (SQ) ---
INDICATION: Severe headache intermittent garbled speech. COMPARISON: September 07, 2014 CORRELATION: None TECHNIQUE: Noncontrast spiral axial CT images were obtained from the skull base to vertex. This exam was performed according to our departmental dose-optimization program, which includes automated exposure control, adjustment of the mA and/or kV according to patient size and/or use of iterative reconstruction techniques. FINDINGS: There is no evidence of acute intracranial hemorrhage, midline shift, mass effect or mass lesion. Barboza-white differentiation is normal. There is no evidence of acute large territory infarct. Ventricles and extracerebral spaces are within normal limits, for age. Presumed arachnoid cyst left temporal tip, similar to prior The visualized paranasal sinuses are grossly clear. The orbits and eyeballs are unremarkable. The mastoid air cells are clear. Skull base and calvarium appear intact. IMPRESSION: No acute intracranial process is identified. The cause of the patient's headache and speech difficulty is not identified on this examination.
[2020-04-06 20:39] LABS: ALBUMIN 4.8 g/dL (3.5-5.0); ALKALINE PHOSPHATASE 117 U/L (38-126); ANION GAP 8 (5-19); ASPARTATE AMINO TRANSFERASE 74 U/L (17-59); BILIRUBIN,TOTAL 0.5 mg/dL (0.2-1.3); BLOOD UREA NITROGEN 14 mg/dL (7-20); CALCIUM 9.7 mg/dL (8.4-10.2); CARBON DIOXIDE 27 mmol/L (22-30); CHLORIDE 102 mmol/L (98-107); CREATINE KINASE 754 U/L (55-170); GLUCOSE 94 mg/dL (75-110); POTASSIUM 4.4 mmol/L (3.6-5.0); TOTAL PROTEIN 7.4 g/dL (6.3-8.2)
[2020-04-06] MEDS ORDERED: NORMAL SALINE 1000 ML 1,000 ML IV ONE (20:49)
[2020-04-06] MEDS ORDERED: PROCHLORPERAZINE EDISYLATE INJ 10 MG/2 ML VIAL IV ONE (20:50)
[2020-04-06] MEDS ORDERED: DIPHENHYDRAMINE HCL 50 MG/ML VIAL IV ONE (20:50)
[2020-04-06 20:51] LABS: CREATINE KINASE MB 4.88 ng/mL (<4.55); TROPONIN I < 0.012 ng/mL
--- NOTE | 2020-04-06 21:00 | ER Document Report ---
ED General - General Chief Complaint: Headache <24 hrs old Stated Complaint: SEVERE HEADACHE, DIZZINESS, DIORIENTED Time Seen by Provider: 04/06/20 19:51 Primary Care Provider: TATI WARD [NO LOCAL MD] - Follow up as needed Mode of Arrival: Wheelchair TRAVEL OUTSIDE OF THE [place] IN LAST 30 DAYS: No - HPI Notes: 39-year-old male history of smoking, hypertension presents with sudden onset severe headache approximately 5:30 PM today. Patient says he has been working outside but not exerting himself significantly and suddenly from 1 second to next felt worst headache of his life that began in left temporal region associated with 1 episode of vomiting and transient change in speech and vision. Patient says that bilateral vision seemed difficult to focus and seems like his visual field was jumping which is currently resolved. Patient has had that he has had difficulty speaking and that he feels like when he says words they do not come out correctly which has improved since onset, but not resolved. Patient was previously every day drinker and stopped drinking approximately 1 week ago without any withdrawal symptoms. Patient started clonidine for high blood pressure few days prior to arrival. Patient was using poison erika spray but denies any fumes. patient denies ever having any similar episodes, any weakness or numbness, change in gait, vertigo, seizure, trauma, bleeding diatheses, anticoagulation, irregular heartbeat, palpitations, chest pain, lower extremity edema, cardiac history, fever, myalgia, cough, sore throat, abdominal pain, drug use - Related Data Allergies/Adverse Reactions: No Known Allergies Allergy (Verified 04/06/20 19:38) Home Medications: clonidine 0.1mg po TID, last dose this am Past Medical History - General Information source: Patient - Social History Smoking Status: Current Every Day Smoker Chew tobacco use (# tins/day): No Frequency of alcohol use: None Drug Abuse: None Family History: CAD Patient has homicidal ideation: No - Past Medical History Cardiac Medical History: Reports: Hx Hypertension Denies: Hx Atrial Fibrillation, Hx Congestive Heart Failure, Hx Coronary Artery Disease Pulmonary Medical History: Reports: Hx Asthma, Hx Pneumonia Neurological Medical History: Denies: Hx Cerebrovascular Accident, Hx Migraine, Hx Seizures Endocrine Medical History: Denies: Hx Diabetes Mellitus Type 1, Hx Diabetes Mellitus Type 2, Hx Graves' Disease Renal/ Medical History: Denies: Hx Benign Prostatic Hyperplasia, Hx End Stage Renal Disease, Hx Hemodialysis, Hx Hydrocele, Hx Peritoneal Dialysis Malignancy Medical History: Denies Hx Bone Cancer, Denies Hx Brain Cancer, Denies Hx Colorectal Cancer, Denies Hx Liver Cancer GI Medical History: Denies: Hx Cirrhosis, Hx Crohn's Disease, Hx Diverticulitis, Hx Gastritis Past Surgical History: Reports: Hx Orthopedic Surgery - rt shoulder - Immunizations Hx Diphtheria, Pertussis, Tetanus Vaccination: Yes Review of Systems - Review of Systems Notes: REVIEW OF SYSTEMS: CONSTITUTIONAL : Denies fever, chills, or sweats. EENT: Denies recent cold/sinus symptoms, denies throat pain CARDIOVASCULAR: Denies chest pain, GERARDO RESPIRATORY: Denies cough, denies shortness of breath. GASTROINTESTINAL: Denies abdominal pain, +nausea/vomiting. GENITOURINARY: Denies difficulty urinating, painful urination. MUSCULOSKELETAL: Denies neck pain, back pain. SKIN: Denies rash or skin lesions. HEMATOLOGIC : Denies easy bruising or bleeding. LYMPHATIC: Denies swollen, enlarged glands. NEUROLOGICAL: +headache, denies change in gait. PSYCHIATRIC: Denies anxiety or stress or depression. Physical Exam - Vital signs Vitals: Temp Pulse Resp BP Pulse Ox 97.7 F 103 H 18 145/100 H 98 04/06/20 19:35 04/06/20 19:35 04/06/20 19:35 04/06/20 19:35 04/06/20 19:35 - Notes Notes: PHYSICAL EXAMINATION: GENERAL: Well-appearing, well-nourished and in no acute distress. HEAD: Atraumatic, normocephalic. EYES: Pupils equal round and appropriate constriction, sclera anicteric, conjunctiva are normal, EOMI ENT: nares patent, moist mucous membranes. NECK: Normal range of motion, supple without lymphadenopathy LUNGS: Breath sounds clear to auscultation bilaterally and equal. No wheezes rales or rhonchi. HEART: Regular rate and rhythm without murmurs ABDOMEN: Soft, nontender, no guarding, no masses, no CVAT EXTREMITIES: Normal range of motion, no pitting or edema. No cyanosis. NEUROLOGICAL: Awake, alert, conversing appropriately with normal speech, moves all extremities spontaneously, cranial nerves II through XII intact bilaterally, 5 out of 5 strength in all extremities, normal sensation in all extremities, normal [id number] PSYCH: Normal mood, normal affect. SKIN: Warm, Dry, normal turgor, no rashes or lesions noted. Course - Re-evaluation Re-evalutation: 04/06/20 20:58 Patient symptoms now improved although still has headache. Symptoms concerning for possible subarachnoid hemorrhage, AVM, TIA. Patient has no other symptoms of COVID but given age rule out COVID as cause for neurologic symptoms. Will obtain CT head and if normal will obtain CTA of head and neck, monitor patient, check electrolytes and CK, hydrate, pain control, and likely admit for TIA work- up. 04/07/20 00:14 No emergent findings found on CTA head and neck or rest of work-up. Patient remains improved. Discussed case with Dr. Flaherty who has seen patient and requested telemetry observation bed. - Vital Signs Vital signs: Temp Pulse Resp BP Pulse Ox 97.7 F 80 18 144/94 H 95 04/06/20 19:35 04/06/20 23:12 04/06/20 23:12 04/06/20 23:12 04/06/20 23:12 - Laboratory Result Diagrams: 04/06/20 20:09 04/06/20 20:09 Laboratory results interpreted by me: 04/06/20 04/06/20 04/06/20 20:09 20:09 20:09 WBC 11.2 H MCV 98 H MCH 33.7 H RDW 16.2 H AST 74 H ALT 57 H Creatine Kinase 754 H CK-MB (CK-2) 4.88 H - EKG Interpretation by Me Additional EKG results interpreted by me: 04/06/20 22:34 Heart rate 101, sinus tachycardia, no significant ST elevations or depressions, no significant T wave abnormalities, QTC mildly prolonged at 477 Discharge - Discharge Clinical Impression: TIA (transient ischemic attack) Disposition: ADMITTED OBSERVATION Admitting Provider: Reynold (Hospitalist) Unit Admitted: Telemetry Referrals: ED,NO [NO LOCAL MD] - Follow up as needed
--- NOTE | 2020-04-06 22:47 | RADIOLOGY REPORT (SQ) ---
CLINICAL INDICATION: sudden severe BAUTISTA speech vision change, htn. . TECHNIQUE: CT arteriography was obtained of the extracranial carotid and vertebral arteries and [place] with multiplanar MIP and/or 3-D angiographic reconstructions. This exam was performed according to our departmental dose-optimization program, which includes automated exposure control, adjustment of the mA and/or kV according to patient size and/or use of iterative reconstruction techniques. COMPARISON: None. CORRELATION: None. FINDINGS: NECK: The aortic arch demonstrates classic anatomy with 3 vessel origin of the great vessels. No hemodynamically significant stenosis is identified at the origin of great vessels. Right: The common carotid artery is unremarkable without evidence of hemodynamically significant stenosis. The external carotid artery is unremarkable without evidence of hemodynamically significant stenosis. The cervical internal carotid artery is unremarkable without evidence of hemodynamically significant stenosis. Left: The common carotid artery is unremarkable without evidence of hemodynamically significant stenosis. The external carotid artery is unremarkable without evidence of hemodynamically significant stenosis. The cervical internal carotid artery is unremarkable without evidence of hemodynamically significant stenosis. The vertebral arteries are unremarkable without evidence of hemodynamically significant stenosis. Right vertebral dominance. Surrounding soft tissues of the neck are unremarkable. Osteoarthritis of the cervical spine particularly uncovertebral joint at C5-C6. Chronic changes at the lung apices. Brain: Intracranial imaging degraded by venous opacification. The intracranial internal carotid arteries are patent, bilaterally. The A1 segment of the right anterior cerebral artery appears atretic with both A2 segments fill from left circulation and a patent anterior communicating artery. The central bilateral middle cerebral arteries are patent. The central bilateral posterior cerebral arteries are patent. There may be origin on the right. Cerebral arteries more peripherally are not well seen given adjacent venous opacification. Vertebrobasilar system is patent, intracranial Internal carotid artery stenosis quantification and significance is defined utilizing the methods of [place] Symptomatic Carotid Endarterectomy Trial (NASCET). IMPRESSION: No evidence of hemodynamically significant stenosis extracranial carotid and vertebral systems. Presumed anatomic variants to the [place]. No acute process is seen.
--- NOTE | 2020-04-06 22:47 | RADIOLOGY REPORT (SQ) ---
CLINICAL INDICATION: sudden severe BAUTISTA speech vision change, htn. . TECHNIQUE: CT arteriography was obtained of the extracranial carotid and vertebral arteries and [place] with multiplanar MIP and/or 3-D angiographic reconstructions. This exam was performed according to our departmental dose-optimization program, which includes automated exposure control, adjustment of the mA and/or kV according to patient size and/or use of iterative reconstruction techniques. COMPARISON: None. CORRELATION: None. FINDINGS: NECK: The aortic arch demonstrates classic anatomy with 3 vessel origin of the great vessels. No hemodynamically significant stenosis is identified at the origin of great vessels. Right: The common carotid artery is unremarkable without evidence of hemodynamically significant stenosis. The external carotid artery is unremarkable without evidence of hemodynamically significant stenosis. The cervical internal carotid artery is unremarkable without evidence of hemodynamically significant stenosis. Left: The common carotid artery is unremarkable without evidence of hemodynamically significant stenosis. The external carotid artery is unremarkable without evidence of hemodynamically significant stenosis. The cervical internal carotid artery is unremarkable without evidence of hemodynamically significant stenosis. The vertebral arteries are unremarkable without evidence of hemodynamically significant stenosis. Right vertebral dominance. Surrounding soft tissues of the neck are unremarkable. Osteoarthritis of the cervical spine particularly uncovertebral joint at C5-C6. Chronic changes at the lung apices. Brain: Intracranial imaging degraded by venous opacification. The intracranial internal carotid arteries are patent, bilaterally. The A1 segment of the right anterior cerebral artery appears atretic with both A2 segments fill from left circulation and a patent anterior communicating artery. The central bilateral middle cerebral arteries are patent. The central bilateral posterior cerebral arteries are patent. There may be origin on the right. Cerebral arteries more peripherally are not well seen given adjacent venous opacification. Vertebrobasilar system is patent, intracranial Internal carotid artery stenosis quantification and significance is defined utilizing the methods of [place] Symptomatic Carotid Endarterectomy Trial (NASCET). IMPRESSION: No evidence of hemodynamically significant stenosis extracranial carotid and vertebral systems. Presumed anatomic variants to the [place]. No acute process is seen.
[2020-04-06] MEDS ORDERED: IBUPROFEN 800 MG TABLET PO PRN (23:59)
--- NOTE | 2020-04-07 00:37 | PDOC H&P ---
History of Present Illness History of Present Illness: KIKI PHILLIP III is a 39 year old male who is a smoker with a history of hypertension and a strong family history of coronary artery disease who presents after all onset of a left posterior lateral headache that started around 530 this evening. He then began to have some trouble with his vision, primarily it looked like things that were in his field of view look like they were moving w hen they were actually sitting still, sort of pulsating [id number] towards him and away from him. He said he felt like he been having some trouble with his speech but I did not notice him having any trouble speaking whatsoever. He said he felt like his symptoms had pretty much resolved. There is no family history of stroke but he said all the men in his family have of heart attacks before the age of 60. He is never had anything like this before and he said he is typically not prone to headaches. Past Medical History Cardiac Medical History: Reports: Hypertension Denies: Atrial Fibrillation, Congestive Heart Failure, Coronary Artery Disea se Pulmonary Medical History: Reports: Asthma, Pneumonia Neurological Medical History: Denies: Migraine, Seizures Endocrine Medical History: Denies: Diabetes Mellitus Type 1, Diabetes Mellitus Type 2 Renal/ Medical History: Denies: End Stage Renal Disease Malignancy Medical History: Denies: Bone Cancer, Brain Cancer, Colorectal Cancer, Liver Cancer GI Medical History: Denies: Cirrhosis, Crohn's Disease, Diverticulitis Past Surgical History Past Surgical History: Reports: Orthopedic Surgery - rt shoulder Social History Smoking Status: Current Every Day Smoker Electronic Cigarette use?: No Family History Family History: CAD Parental Family History Reviewed: Yes Children Family History Reviewed: Yes Sibling(s) Family History Reviewed.: Yes Medication/Allergy Allergies/Adverse Reactions: No Known Allergies Allergy (Verified 04/06/20 19:38) Review of Systems All systems: reviewed and no additional remarkable complaints except as stated - All systems were reviewed and were negative except as noted in the HPI Physical Exam Vital Signs: Temp Pulse Resp BP Pulse Ox 97.7 F 80 18 144/94 H 95 04/06/20 19:35 04/06/20 23:12 04/06/20 23:12 04/06/20 23:12 04/06/20 23:12 Intake & Output 04/05/20 04/06/20 04/07/20 06:59 06:59 06:59 Intake Total 1000 Balance 1000 Weight 90.718 kg General appearance: PRESENT: no acute distress, cooperative, disheveled Head exam: PRESENT: atraumatic, normocephalic Eye exam: PRESENT: EOMI, PERRLA. ABSENT: conjunctival injection, nystagmus, scleral icterus Ear exam: PRESENT: normal external ear exam Mouth exam: PRESENT: moist, neck supple Throat exam: ABSENT: post pharyngeal erythema Neck exam: PRESENT: full ROM. ABSENT: carotid bruit, JVD, lymphadenopathy, meningismus, tenderness, thyromegaly Respiratory exam: PRESENT: clear to auscultation seth, symmetrical, unlabored. ABSENT: accessory muscle use, chest wall tenderness, crackles, prolonged expiratory phas, rhonchi, tachypnea, wheezes Cardiovascular exam: PRESENT: RRR, +S1, +S2 Pulses: PRESENT: normal carotid pulses Vascular exam: PRESENT: normal capillary refill GI/Abdominal exam: PRESENT: normal bowel sounds, soft. ABSENT: distended, guarding, rebound, tenderness Extremities exam: ABSENT: clubbing, pedal edema Musculoskeletal exam: PRESENT: normal inspection. ABSENT: deformity Neurological exam: PRESENT: alert, awake, oriented to person, oriented to place, oriented to time, oriented to situation, CN II-XII grossly intact. ABSENT: motor sensory deficit Psychiatric exam: PRESENT: appropriate affect, normal mood Skin exam: PRESENT: dry, warm Results Laboratory Results: 04/06/20 20:09 04/06/20 20:09 04/06/20 04/06/20 20:09 20:09 WBC 11.2 H RBC 5.02 Hgb 16.9 Hct 49.3 MCV 98 H MCH 33.7 H MCHC 34.3 RDW 16.2 H Plt Count 218 Seg Neutrophils % 66.4 Sodium 137.1 Potassium 4.4 Chloride 102 Carbon Dioxide 27 Anion Gap 8 BUN 14 Creatinine 0.83 Est GFR ( Amer) > 60 Glucose 94 Calcium 9.7 Total Bilirubin 0.5 AST 74 H Alkaline Phosphatase 117 Total Protein 7.4 Albumin 4.8 04/06/20 04/06/20 20:09 20:09 Creatine Kinase 754 H CK-MB (CK-2) 4.88 H Troponin I < 0.012 Impressions: Chest X-Ray 04/06/20 19:55 IMPRESSION: There are no acute lung parenchymal findings. Head CT 04/06/20 19:55 IMPRESSION: No acute intracranial process is identified. The cause of the patient's headache and speech difficulty is not identified on this examination. Head CTA 04/06/20 20:50 IMPRESSION: No evidence of hemodynamically significant stenosis extracranial carotid and vertebral systems. Presumed anatomic variants to the [place]. No acute process is seen. Neck CTA 04/06/20 20:50 IMPRESSION: No evidence of hemodynamically significant stenosis extracranial carotid and vertebral systems. Presumed anatomic variants to the [place]. No acute process is seen. Assessment and Plan - Diagnosis (1) Headache Qualifiers: Headache type: other complicated headache syndrome Qualified Code(s): G44.59 - Other complicated headache syndrome Is this a current diagnosis for this admission?: Yes Plan: His symptoms sound more like an atypical migraine and less like a stroke. He already had a negative head CT, negative head CTA, and negative neck CTA. He should take an aspirin every day with his strong family history of coronary artery disease and he really needs to quit smoking and we talked about this quite a bit. I will check a lipid panel on him order an MRI of his brain, but because his deficits are resolved there is unlikely to be anything positive on the imaging. If his work-up is negative he can go home in the morning. He does not have any neurological deficits whatsoever so I am not ordering any therapy evaluations. - Time Time Spent with patient: 35 or more minutes Anticipated Discharge Disposition: Home, Self Care Anticipated Discharge Timeframe: within 24 hours
--- NOTE | 2020-04-07 09:57 | RADIOLOGY REPORT (SQ) ---
EXAM DESCRIPTION: MRI HEAD WITHOUT IMAGES COMPLETED DATE/TIME: 04/07/2020 8:18 am REASON FOR STUDY: neuro deficit, acute, stroke suspected COMPARISON: None. TECHNIQUE: Multiplanar imaging includes non-contrasted T1, T2, FLAIR, and diffusion with ADC map seq uences. Images stored on PACS. LIMITATIONS: None. FINDINGS: ANATOMY: No anomalies. Normal vascular flow voids. Pituitary fossa normal. CSF SPACES: Left temporal lobe CSF cyst is again noted and unchanged. CEREBRUM: Sulci and gyri normal in size and contour. There are a few punctate areas of high signal i ntensity in the deep white matter consistent with small vessel disease. No evidence of hemorrhage, m ass, or extraaxial fluid collection. POSTERIOR FOSSA: No signal alteration. No hemorrhage. No edema, masses or mass effect. Internal [place] tory canals, cerebello-pontine angles, mastoids normal. DIFFUSION IMAGING: Negative for acute or sub-acute infarction. ORBITS: No masses. Globes normal. PARANASAL SINUSES: No fluid levels. Mucosa normal. OTHER: No other significant finding. IMPRESSION: Stable CSF cyst in the left middle cranial fossa. No acute intracranial event. EVIDENCE OF ACUTE STROKE: NO. TECHNICAL DOCUMENTATION: JOB ID: [id number] 2010 [employer]- All Rights Reserved Reading location - IP/workstation name: [email or web address]
[2020-04-07] MEDS ORDERED: ASPIRIN 81 MG TABLET, CHEWABLE PO SCH (10:00)
[2020-04-07] MEDS ORDERED: FOLIC ACID 1 MG TABLET PO SCH (10:00)
[2020-04-07] MEDS ORDERED: THIAMINE HCL 100 MG TABLET PO SCH (10:00)
[2020-04-07 13:16] VITALS: BP 133/89
--- NOTE | 2020-04-07 16:33 | EKG REPORT ---
SEVERITY:- BORDERLINE ECG - SINUS TACHYCARDIA BORDERLINE PROLONGED QT INTERVAL : Confirmed by: Jarad Beck MD 07-Apr-2020 16:33:09
--- NOTE | 2020-04-09 18:33 | PDOC DISCHARGE SUMMARY ---
Impression - Admit/DC Date/PCP Admission Date/Primary Care Provider: 04/07/20 00:19 Discharge Date: 04/07/20 - Discharge Diagnosis (1) Headache Is this a current diagnosis for this admission?: Yes - Additional Information Discharge Diet: Regular Discharge Activity: Activity As Tolerated, Balance Activity w/Rest Referrals: LOCALMD,NO [NO LOCAL MD] - Follow up as needed Prescriptions: Butalb/Acetaminophen/Caffeine [Fioricet 50-300-40 mg Capsule] 1 cap PO Q6HP PRN #12 cap PRN Reason: headache Home Medications: Aspirin [Aspirin 81 mg Chewable Tablet] 81 mg PO DAILY tab.chew 04/07/20 Butalb/Acetaminophen/Caffeine [Fioricet 50-300-40 mg Capsule] 1 cap PO Q6HP PRN #12 cap 04/07/20 Folic Acid [Folvite 1 mg Tablet] 1 mg PO DAILY tablet 04/07/20 Ibuprofen [Motrin 800 mg Tablet] 800 mg PO Q6HP PRN tablet 04/07/20 Thiamine HCl [Thiamine 100 mg Tablet] 100 mg PO DAILY tablet 04/07/20 History of Present Illiness History of Present Illness: Per H&P by Dr. Flaherty: KIKI PHILLIP III is a 39 year old male who is a smoker with a history of hypertension and a strong family history of coronary artery disease who presents after all onset of a left posterior lateral headache that started around 530 this evening. He then began to have some trouble with his vision, primarily it looked like things that were in his field of view look like they were moving when they were actually sitting still, sort of pulsating [id number] towards him and away from him. He said he felt like he been having some trouble with his speech but I did not notice him having any trouble speaking whatsoever. He said he felt like his symptoms had pretty much resolved. There is no family history of stroke but he said all the men in his family have of heart attacks before the age of 60. He is never had anything like this before and he said he is typically not prone to headaches. Hospital Course Hospital Course: Patient was admitted for management of headache. He was provided IVF, benadryl, and compazine with near complete resolution of headache. He reports that he has been symptom free since receiving Motrin earlier this morning. Oatient was placed on liseth aspirin therapy r/t strong family history of CAD. He was started on thiamin and folic acid supplements related to heavy alcohol use. Thorough neurologic work up included Head CT, Head/Neck CTA, and Head MRI; fortunately all negative. COVID testing negative. Patient was discharged home in stable condition with Rx for Fioricet. He is recommended to continue OTC ASA, Folic acid and thiamin supplementation. Follow up with PCP within 1 week and to return to the emergency department, as needed, for concerning symptoms. Physical Exam Vital Signs: Temp Pulse Resp BP Pulse Ox 98.1 F 84 17 133/89 H 97 04/07/20 13:14 04/07/20 13:14 04/07/20 13:14 04/07/20 13:14 04/07/20 13:14 General appearance: PRESENT: no acute distress, disheveled, well-developed, well-nourished Head exam: PRESENT: atraumatic, normocephalic Eye exam: PRESENT: conjunctiva pink, EOMI, PERRLA. ABSENT: scleral icterus Mouth exam: PRESENT: moist, tongue midline Respiratory exam: PRESENT: clear to auscultation seth, symmetrical, unlabored. ABSENT: rales, rhonchi, wheezes Cardiovascular exam: PRESENT: RRR, +S1, +S2. ABSENT: diastolic murmur, rubs, systolic murmur Pulses: PRESENT: normal dorsalis pedis pul Vascular exam: PRESENT: normal capillary refill Extremities exam: PRESENT: full ROM. ABSENT: calf tenderness, clubbing, pedal edema Neurological exam: PRESENT: alert, awake, oriented to person, oriented to place, oriented to time, oriented to situation, CN II-XII grossly intact. ABSENT: motor sensory deficit Psychiatric exam: PRESENT: appropriate affect, normal mood. ABSENT: homicidal ideation, suicidal ideation Skin exam: PRESENT: dry, intact, warm. ABSENT: cyanosis, rash Results Laboratory Results: WBC 11.2 10^3/uL (4.0-10.5) H 04/06/20 20:09 RBC 5.02 10^6/uL (4.35-5.55) 04/06/20 20:09 Hgb 16.9 g/dL (13.5-17.0) 04/06/20 20:09 Hct 49.3 % (37.9-51.0) 04/06/20 20:09 MCV 98 fl (80-97) H 04/06/20 20:09 MCH 33.7 pg (27.0-33.4) H 04/06/20 20:09 MCHC 34.3 g/dL (32.0-36.0) 04/06/20 20:09 RDW 16.2 % (11.5-14.0) H 04/06/20 20:09 Plt Count 218 10^3/uL (150-450) 04/06/20 20:09 Lymph % (Auto) 22.1 % (13-45) 04/06/20 20:09 [place] % (Auto) 7.3 % (3-13) 04/06/20 20:09 Eos % (Auto) 3.3 % (0-6) 04/06/20 20:09 Baso % (Auto) 0.9 % (0-2) 04/06/20 20:09 Absolute Neuts (auto) 7.4 10^3/uL (1.7-8.2) 04/06/20 20:09 Absolute Lymphs (auto) 2.5 10^3/uL (0.5-4.7) 04/06/20 20:09 Absolute Monos (auto) 0.8 10^3/uL (0.1-1.4) 04/06/20 20:09 Absolute Eos (auto) 0.4 10^3/uL (0.0-0.6) 04/06/20 20:09 Absolute Basos (auto) 0.1 10^3/uL (0.0-0.2) 04/06/20 20: Seg Neutrophils % 66.4 % (42-78) 04/06/20 20:09 PT 12.6 SEC (11.4-15.4) 04/06/20 20:09 INR 0.93 04/06/20 20:09 APTT 31.6 SEC (23.5-35.8) 04/06/20 20:09 Sodium 137.1 mmol/L (137-145) 04/06/20 20:09 Potassium 4.4 mmol/L (3.6-5.0) 04/06/20 20:09 Chloride 102 mmol/L (98-107) 08/13/20 20:09 Carbon Dioxide 27 mmol/L (22-30) 04/06/20 20:09 Anion Gap 8 (5-19) 04/06/20 20:09 BUN 14 mg/dL (7-20) 04/06/20 20:09 Creatinine 0.83 mg/dL (0.52-1.25) 04/06/20 20:09 Est GFR ( Amer) > 60 (>60) 04/06/20 20:09 Est GFR (MDRD) Non-Af > 60 (>60) 04/06/20 20:09 Glucose 94 mg/dL (75-110) 04/06/20 20:09 POC Glucose 97 mg/dL (70-110) 04/06/20 20:08 Calcium 9.7 mg/dL (8.4-10.2) 04/06/20 20:09 Total Bilirubin 0.5 mg/dL (0.2-1.3) 04/06/20 20:09 Direct Bilirubin 0.0 mg/dL (0.0-0.4) 04/06/20 20:09 Neonat Total Bilirubin Not Reportable 04/06/20 20:09 Neonat Direct Bilirubin Not Reportable 04/06/20 20:09 Neonat Indirect Bili Not Reportable 04/06/20 20:09 AST 74 U/L (17-59) H 04/06/20 20:09 ALT 57 U/L (<50) H 04/06/20 20:09 Alkaline Phosphatase 117 U/L (38-126) 04/06/20 20:09 Creatine Kinase 754 U/L (55-170) H 04/06/20 20:09 CK-MB (CK-2) 4.88 ng/mL (<4.55) H 04/06/20 20:09 Troponin I < 0.012 ng/mL 04/06/20 20:09 Total Protein 7.4 g/dL (6.3-8.2) 04/06/20 20:09 Albumin 4.8 g/dL (3.5-5.0) 04/06/20 20:09 COVID-19 Source NASOPHARYNGEAL 04/06/20 22:41 COVID-19 (ROXANE) NOT DETECTED 04/06/20 22:41 04/06/20 20:09 CK-MB (CK-2) 4.88 H Troponin I < 0.012 Impressions: Head MRI 04/06/20 00:00 IMPRESSION: Stable CSF cyst in the left middle cranial fossa. No acute intracranial event. EVIDENCE OF ACUTE STROKE: NO. Chest X-Ray 04/06/20 19:55 IMPRESSION: There are no acute lung parenchymal findings. Head CT 04/06/20 19:55 IMPRESSION: No acute intracranial process is identified. The cause of the patient's headache and speech difficulty is not identified on this examination. Head CTA 04/06/20 20:50 IMPRESSION: No evidence of hemodynamically significant stenosis extracranial carotid and vertebral systems. Presumed anatomic variants to the [place]. No acute process is seen. Neck CTA 04/06/20 20:50 IMPRESSION: No evidence of hemodynamically significant stenosis extracranial carotid and vertebral systems. Presumed anatomic variants to the [place] of [place]. No acute process is seen. Plan Plan of Treatment: Patient is discharged home in stable condition. He is advised to follow up with his PCP within 1 week. Drink plenty of water. Avoid tobacco, alcohol, and caffeine products. Get plenty of rest. Take medications as prescribed. Return to the emergency department as needed for concerning symptoms. Time Spent: Greater than 30 Minutes Stroke Is this a Stroke Patient?: No Acute Heart Failure - Is this a Heart Failure Patient?: No
== END 2020-04-07 13:14 | disposition home or self-care (01) ==
LOC: ER 19:32 → EH 04-07 00:19
PROVIDERS: ADMIT Family Medicine; ATTEND Registered Nurse
DX: R51 Headache (principal); H53.8 Other visual disturbances; R47.9 Unspecified speech disturbances; F17.200 Nicotine dependence, unspecified, uncomplicated; R11.10 Vomiting, unspecified; R00.0 Tachycardia, unspecified; R94.31 Abnormal electrocardiogram [ECG] [EKG]; I10 Essential (primary) hypertension; M19.90 Unspecified osteoarthritis, unspecified site; Z79.899 Other long term (current) drug therapy; Z82.49 Family history of ischemic heart disease and other diseases of the circulatory system; Z03.818 Encounter for observation for suspected exposure to other biological agents ruled out; Z93.3 Colostomy status; Z72.89 Other problems related to lifestyle
CPT/HCPCS: 93005; 99285; 96361; 96374; 96375; 36415; 82553; 82962; 82550; 85025; 85610; 85730; 87635; 80053; 84484; 70551; 71045; 70450; 70496; 70498; 93010; G0378; J1200; J0780; J7030; C9803